=== PATIENT | female | born 1995 | race African-American/Black ===

== ENCOUNTER 2017-10-13 07:31 | Emergency (ER) | payer MEDICAID ==
[~2017-10-13] VITALS: Ht 167.6 cm; Wt 73.0 kg
[2017-10-13 09:04] LABS: BASOPHILS % 0.2 % (0.0-2.0); EOSINOPHILS % 0.6 % (0.0-5.0); HEMOGLOBIN. 11.9 g/dL (12.0-16.0); LYMPHOCYTES % 14.8 % (20.0-50.0); MEAN CORPUSCULAR HEMOGLOBIN 32.8 pg (28.0-32.0); MEAN CORPUSCULAR VOLUME 93.5 fL (81.0-99.0); MEAN PLATELET VOLUME 8.6 fl (7.4-10.4); MONOCYTES % 5.5 % (2.0-8.0); NEUTROPHILS % 78.9 % (40.0-76.0); PLATELET 209 x1000/uL (130-400); RED BLOOD CELL COUNT 3.64 mill/uL (4.2-5.4); RED CELL DISTRIBUTION WIDTH 12.5 % (11.6-14.6)
[2017-10-13 09:06] LABS: CHLORIDE 103 mEq/L (98-107)
[2017-10-13 09:31] LABS: B-HCG QUANTITATIVE 50697 mIU/mL (<3)
[2017-10-13 09:41] LABS: CLARITY URINE CLOUDY (CLEAR); COLOR URINE YELLOW (YELLOW); KETONES URINE NEGATIVE (NEGATIVE); LEUKOCYTE ESTERASE URINE TRACE (NEGATIVE); NITRITE URINE NEGATIVE (NEGATIVE); OCCULT BLOOD URINE 3+ (NEGATIVE); PH URINE 7.5 (4.5-8.0); PROTEIN URINE TRACE (NEGATIVE); SPECIFIC GRAVITY URINE 1.028 (1.005-1.030); UROBILINOGEN URINE 0.2 E.U./dL (0.2-1.0)
[2017-10-13 12:52] VITALS: BP 104/68
== END 2017-10-13 14:02 | disposition home or self-care (01) ==
LOC: ER 07:59
DX: O20.9 Hemorrhage in early pregnancy, unspecified (principal); O26.891 Other specified pregnancy related conditions, first trimester; R10.30 Lower abdominal pain, unspecified; Z3A.13 13 weeks gestation of pregnancy
CPT/HCPCS: 36415; 76801; 80053; 81003; 81025; 84702; 85025; 86886; 99285

== ENCOUNTER 2018-07-25 17:35 | Observation (INO) | payer MEDICAID ==
[~2018-07-25] VITALS: Ht 167.6 cm; Wt 77.1 kg
[2018-07-25] MEDS ORDERED: PNV1TABL50 MT (18:25)
[2018-07-25] MEDS ORDERED: LACTATED RINGERS 1,000 ML IV SCH (18:30)
[2018-07-25 19:28] LABS: CLARITY URINE CLEAR (CLEAR); COLOR URINE YELLOW (YELLOW); KETONES URINE NEGATIVE (NEGATIVE); LEUKOCYTE ESTERASE URINE TRACE (NEGATIVE); NITRITE URINE NEGATIVE (NEGATIVE); OCCULT BLOOD URINE 2+ (NEGATIVE); PH URINE 6.5 (4.5-8.0); PROTEIN URINE NEGATIVE (NEGATIVE); SPECIFIC GRAVITY URINE 1.012 (1.005-1.030); UROBILINOGEN URINE 0.2 E.U./dL (0.2-1.0)
[2018-07-25] MEDS ORDERED: TERBUTALINE SULFATE 1MG/ML VIAL SUBCUT ONE (20:45)
[2018-07-25] MEDS ORDERED: BETAMETHASONE ACET/BETAMET 30 MG/5 ML VIAL IM NR (23:12)
== END 2018-07-26 00:40 | disposition home or self-care (01) ==
LOC: L&D 17:35
PROVIDERS: ADMIT Obstetrics & Gynecology; ATTEND Obstetrics & Gynecology
DX: O26.853 Spotting complicating pregnancy, third trimester (principal); Z3A.29 29 weeks gestation of pregnancy
CPT/HCPCS: 76805; 76818; 81003; 96372; G0378; J0702; J3105; 96360; 96361; J7120

== ENCOUNTER 2018-07-29 20:20 | Observation (INO) | payer MEDICAID ==
[~2018-07-29 20:20] MED LIST: PNV1TABL50 MT
[2018-07-29] MEDS ORDERED: PNV1TABL50 MT (22:27)
== END 2018-07-29 22:35 | disposition home or self-care (01) ==
LOC: L&D 20:20
PROVIDERS: ADMIT Specialist; ATTEND Specialist
DX: O36.8130 Decreased fetal movements, third trimester, not applicable or unspecified (principal); Z3A.29 29 weeks gestation of pregnancy
CPT/HCPCS: 76815; 76818; 99281; G0378